=== PATIENT | male | born 1970 | race Caucasian/White ===

== ENCOUNTER 2025-03-12 19:23 | Emergency (ER) | payer SELFPAY ==
[2025-03-12 19:46] LABS: #Basophils 0.1 thou/uL (0.0-0.2); #Eosinophils 0.1 thou/uL (0.0-0.7); #Lymphocytes 1.7 thou/uL (1.20-3.40); #Monocytes 1.0 thou/uL (0.11-0.59); #Neutrophils 6.3 thou/uL (1.40-6.50); %Basophils 1.3 % (0.0-1.0); %Eosinophils 1.1 % (0.0-10.0); %Lymphocytes 18.0 % (21.0-51.0); %Monocytes 10.9 % (0.0-10.0); %Neutrophils 68.7 % (42.0-75.0); Hematocrit 54.9 % (42.0-52.0); Hemoglobin 17.4 g/dL (14.0-18.0); Mean Corpuscular Hemoglobin 31.7 pg (27.0-31.0); Mean Corpuscular Volume 99.9 fl (78.0-98.0); Platelet Count 231 10x3/uL (130-400); Red Blood Cell (RBC) Count 5.50 mill/uL (4.70-6.10); White Blood Cell (WBC) Count 9.1 10x3/uL (4.8-10.8)
[2025-03-12] MEDS ORDERED: Nitroglycerin 0.4 MG TAB 1 EACH ONE (19:46)
[2025-03-12] MEDS ORDERED: Acetaminophen 500 MG TAB ONE (19:46)
[2025-03-12 20:07] LABS: ALT (SGPT) 19 U/L (Less than 45); AST (SGOT) 15 U/L (11-34); Albumin 4.0 g/dL (3.1-4.5); Alkaline Phosphatase 71 U/L (40-110); Anion Gap 24 mmol/L (10-20); BUN (Urea Nitrogen) 19 mg/dL (8.4-25.7); Bilirubin, Total 0.5 mg/dL (0.3-1.2); Calc. Creatinine Clearance 0 mL/min (70-130); Calcium 8.9 mg/dL (7.8-10.44); Carbon Dioxide 15 mmol/L (22-29); Chloride 105 mmol/L (98-107); Globulin 3.1 g/dL (2.4-3.5); Potassium 4.6 mmol/L (3.5-5.1); Sodium 139 mmol/L (136-145)
[2025-03-12 20:10] LABS: Troponin I Less than 0.010 ng/mL (< 0.028)
[2025-03-12 20:16] LABS: Glucose 482 mg/dL (70-105)
[2025-03-12 22:47] LABS: Troponin I Less than 0.010 ng/mL (< 0.028)
== END 2025-03-12 23:20 | disposition home or self-care (01) ==
LOC: MADERS 19:23
DX: R07.2 Precordial pain (principal); E11.10 Type 2 diabetes mellitus with ketoacidosis without coma; I25.2 Old myocardial infarction; F17.220 Nicotine dependence, chewing tobacco, uncomplicated
CPT/HCPCS: 71045; 80053; 83880; 84484; 85025; 93005; 96360; 96361; J1815; J7030